=== PATIENT | female | born 1945 | race Caucasian/White ===

== ENCOUNTER 2016-04-23 10:23 | Outpatient (CLI) | payer MEDICARE | END 2016-04-23 10:24 | disposition home or self-care (01) | DX: Z00.00 Encounter for general adult medical examination without abnormal findings (principal); E55.9 Vitamin D deficiency, unspecified; E78.5 Hyperlipidemia, unspecified ==

== ENCOUNTER 2017-12-16 19:27 | Outpatient (CLI) | payer MEDICARE | END 2017-12-16 19:28 | disposition critical access hospital (66) | LOC: EMS 19:27 | PROVIDERS: ATTEND Surgery | DX: S89.91XA Unspecified injury of right lower leg, initial encounter (principal); W01.0XXA Fall on same level from slipping, tripping and stumbling without subsequent striking against object, initial encounter; Y92.512 Supermarket, store or market as the place of occurrence of the external cause ==

== ENCOUNTER 2017-12-16 19:58 | Emergency (ER) | payer MEDICARE ==
--- NOTE | 2017-12-16 21:05 | XRAY Report ---
Reason: fall Procedure Date: 12/16/2017 Accession Number: [id number] / [id number] Procedure: XR - Knee 4 View RT CPT Code: FULL RESULT: EXAM: RIGHT KNEE RADIOGRAPHY EXAM DATE: 12/16/2017 08:20 PM. CLINICAL HISTORY: Fall. Twisting injury. Medial knee pain. COMPARISON: None. TECHNIQUE: 4 views. FINDINGS: Bones: Normal. No fractures or bone lesions. Joints: No subluxation. Small joint effusion. Soft Tissues: Normal. No soft tissue swelling. IMPRESSION: 1. Small right knee joint effusion. There is no indication that the lateral view was obtained cross-table, so assessment for lipohemarthrosis is not possible. 2. No fracture is identified. [facility]IA
--- NOTE | 2017-12-16 21:21 | ED Physician Documentation ---
PD HPI LOWER EXT INJURY - Stated complaint Stated Complaint: GLF/KNEE PX - Chief complaint Chief Complaint: Trauma Ext - History obtained from History obtained from: Patient - History of Present Illness PD HPI LOW EXT INJURY LOCATION: Right, Knee Type of injury: Fall (was at store and there was slippery spot and she fell forward onto her right knee mainly. Pain and swelling locally. Initially with the fall, she felt that her knee would not straighten and then it released and was able to move it better. Still hurts with ROM.) Where injury occurred: Other (store) Timing - onset: Today Timing - details: Abrupt onset, Still present (not as painful for ROM as it was right after the injury.) Worsened by: Moving, Palpating Associated symptoms: Swelling. No: Weakness, Numbness Similar symptoms before: Has not had sx before Recently seen: Not recently seen Review of Systems Skin: denies: Abrasion (s), Laceration (s) Musculoskeletal: reports: Joint pain, Joint swelling Neurologic: reports: Headache, Head injury. denies: Focal weakness, Numbness PD PAST MEDICAL HISTORY - Past Medical History Cardiovascular: None Respiratory: None - Allergies Allergies/Adverse Reactions: Allergies Allergy/AdvReac Type Severity Reaction Status Date / Time Penicillins Allergy Rash Verified 12/16/17 20:06 Sulfa (Sulfonamide Allergy Rash Verified 12/16/17 20:06 Antibiotics) - Living Situation Living Situation: reports: Alone Living Arrangement: reports: At home - Social History Does the pt smoke?: No Does the pt drink ETOH?: No Does the pt have substance abuse?: No PD ED PE NORMAL - Vitals Vital signs reviewed: Yes - General General: Alert and oriented X 3, No acute distress, Well developed/nourished - Derm Derm: Normal color, Warm and dry - Extremities Extremities: Other (right knee with swelling and tenderness infrapatellar. No noted effusion of joint itself. There is good stress testing of liaments without laxity nor pain, though exam limited by tenderness below knee. ) Results - Vitals Vitals: Oxygen O2 Source Room air - Rads (name of study) right knee Radiology: Prelim report reviewed (no fractures), EMP read contemporaneously PD MEDICAL DECISION MAKING - ED course Complexity details: reviewed results, considered differential (knee contusion with infrapatellar swelling. No effusion. No fracture. No obvious ligament injury on stress testing. Consider possible meniscal though. ), d/w patient - Sepsis Event Vital Signs: Oxygen O2 Source Room air Departure - Departure Disposition: 01 Home, Self Care Clinical Impression: Fall from slip, trip, or stumble Qualifiers: Encounter type: initial encounter Qualified Code(s): W01.0XXA - Fall on same level from slipping, tripping and stumbling without subsequent striking against object, initial encounter Knee contusion Qualifiers: Encounter type: initial encounter Laterality: right Qualified Code(s): S80.01XA - Contusion of right knee, initial encounter Condition: Stable Record reviewed to determine appropriate education?: Yes Instructions: ED Meniscal Injury Knee Poss, ED Contusion Lower Ext Comments: Use a knee wrap and apply ice frequently for the swelling. Crutches as needed for partial to no weightbearing based on comfort. Ibuprofen 3 times a day for the next 5 or 6 days. Add Tylenol if needed for pains. Progress activity as able. Recheck if not improved over the next 5 or 6 days. I think this is mostly bruising of the knee and possibly the cartilage. Follow-up if there is persistent pain or you have continued locking or giving out as this may indicate more of a cartilage tear. Discharge Date/Time: 12/16/17 22:14
[2017-12-16] MEDS ORDERED: IBUPROFEN 600 MG TABLET PO STA (21:41)
[2017-12-16] MEDS ORDERED: ACETAMINOPHEN 325 MG TABLET PO STA (21:42)
[2017-12-16 21:53] VITALS: BP 177/73
== END 2017-12-16 22:14 | disposition home or self-care (01) ==
LOC: ED 19:58
DX: S80.01XA Contusion of right knee, initial encounter (principal); W01.10XA Fall on same level from slipping, tripping and stumbling with subsequent striking against unspecified object, initial encounter; Y92.512 Supermarket, store or market as the place of occurrence of the external cause
CPT/HCPCS: 73564; 99283; 99284; A9270